=== PATIENT | female | born 1965 | race Hispanic/Latino ===

== ENCOUNTER 2017-05-03 10:22 | Inpatient (IN) | payer BC, SELFPAY ==
[2017-05-03] MEDS ORDERED: Nitroglycerin 0.4 MG TAB (25 Tab Bottle) ONE (10:54)
[2017-05-03 10:55] LABS: #Basophils 0.1 thou/uL (0.0-0.2); #Eosinphils 0.1 thou/uL (0.0-0.7); #Lymphocytes 1.9 thou/uL (1.20-3.40); #Monocytes 0.4 thou/uL (0.11-0.59); #Neutrophils 2.7 thou/uL (1.40-6.50); %Eosinophils 1.6 % (0.0-10.0); %Lymphocytes 36.3 % (21.0-51.0); %Monocytes 8.4 % (0.0-10.0); Hematocrit 45.5 % (36.0-47.0); Mean Platelet Volume 7.5 fL (7.4-10.4); Red Blood Cell (RBC) Count 4.88 mill/uL (4.20-5.40); White Blood Cell (WBC) Count 5.1 thou/uL (4.8-10.8)
[2017-05-03 11:17] LABS: ALT (SGPT) 18 U/L (8-55); AST (SGOT) 17 U/L (5-34); Alkaline Phosphatase 84 U/L (40-150); Anion Gap 11 mmol/L (10-20); BUN (Urea Nitrogen) 16 mg/dL (9.8-20.1); Bilirubin, Total 0.4 mg/dL (0.2-1.2); CK (CPK) 109 U/L (29-168); Calc. Creatinine Clearance 0 mL/min (70-130); Calcium 9.6 mg/dL (7.8-10.44); Carbon Dioxide 27 mmol/L (22-29); Chloride 106 mmol/L (98-107); Estimated GFR-MDRD 85; Globulin 3.5 g/dL (2.4-3.5); Lipase 14 U/L (8-78); Protein, Total 7.8 g/dL (6.0-8.3)
--- NOTE | 2017-05-03 12:12 | RAD ---
SINGLE VIEW OF CHEST: Date: 05/03/17 COMPARISON: None. HISTORY: Chest pain. FINDINGS: Single view of the chest shows a normal sized cardiomediastinal silhouette. There is no evidence of consolidation, mass, or pleural effusion. The bones are unremarkable. IMPRESSION: No evidence of acute cardiopulmonary disease. POS: [facility]
[2017-05-03] MEDS ORDERED: Enoxaparin Sodium 80 MG/0.8 ML SYRINGE ONE (12:28)
[2017-05-03] MEDS ORDERED: Enoxaparin Sodium 60 MG/0.6 ML SYRINGE ONE (12:29)
[2017-05-03] MEDS ORDERED: Nitroglycerin 2% Ointment 1 INCH/1 GM Packet TOP SCH (14:20)
[2017-05-03] MEDS ORDERED: Temazepam 15 MG CAP PO PRN (14:20)
[2017-05-03] MEDS ORDERED: Milk Of Magnesia 30 ML UDCUP PO PRN (14:20)
[2017-05-03] MEDS ORDERED: Mag-Al 1200 mg/1200 mg/30 ML UDCUP PO PRN (14:20)
[2017-05-03] MEDS ORDERED: Ondansetron HCl/PF 4 MG/2 ML Vial IVP PRN (14:24)
[2017-05-03] MEDS ORDERED: Ondansetron ODT 4 MG TAB PO PRN (14:24)
[2017-05-03 14:33] VITALS: BMI 27.1
[2017-05-03 15:08] LABS: Troponin I 2.828 ng/mL (< 0.028)
[2017-05-03] MEDS: Nitroglycerin 2% Ointment 1 INCH/1 GM Packet TOP SCH ×2 (16:18→19:46)
[2017-05-03] MEDS: Acetaminophen 325 MG TAB PO PRN ×2 (16:19→19:44)
--- NOTE | 2017-05-03 17:51 | HP ---
PRIMARY CARE PHYSICIAN: Paulie Moon M.D. at [facility]\ [place] CHIEF COMPLAINT: Chest pain. HISTORY OF PRESENT ILLNESS: Ms. Wyatt is a very pleasant 52-year-old female that has a history o f cholelithiasis. She says she was in her usual state of health until yesterday. She says that her dog was attacked and she took it to the animal hospital and they were unable to save her dog and he . She says she cried all night yesterday and then this morning, she woke up and was going to [employer] store with her to make a little cross for her dog when she started having pain in her jeff [address]. She says it felt like heartburn and it was not very severe. She rated it about 5/10, but then she noticed some tingling in her arm and her hands as well as having a mild headache as well as a ba ck ache. She mentioned that to her and he felt it was best that she come in to be evaluated . She denies having any shortness of breath. She had some mild nausea, but no diaphoresis. She sa ys the pain lasted about 2 hours and has since completely resolved. The patient says she has had ch est pains off and on, but it has been very rarely and usually when it happens it lasts about an hour or two and then go away. She denies any cough or congestion. She denies any heavy lifting. She o ccasionally has some heartburn-like symptoms which she usually attributes to the stones in her gallb ladder. She says when the gallbladder acts up, it can be very painful. REVIEW OF SYSTEMS: CONSTITUTIONAL: There has been no fevers, chills, no night sweats, no weight loss. HEENT: No headache, no dizziness, no visual changes, no sore throat, rhinorrhea, neck pain, no keith opathy. PULMONARY: No hemoptysis, no cough, no wheezing. CARDIOVASCULAR: As the history of present illness with the addition of no PND, no orthopnea, no pal pitations, and no lower extremity edema or leg pain. GASTROINTESTINAL: She has had some mild nausea, but no vomiting, no change in bowels. GENITOURINARY: No urinary frequency, hematuria, no hesitancy. NEUROLOGIC: No focal weakness, numbness, no seizures. PSYCHIATRIC: No symptoms of anxiety or depression. SKIN AND INTEGUMENT: No skin changes. No rash. PAST MEDICAL HISTORY: Significant for cholelithiasis. PAST SURGICAL HISTORY: She has had x2. ALLERGIES: No known drug allergies. SOCIAL HISTORY: She is and has 3 children. She denies any smoking or alcohol use. FAMILY HISTORY: Significant for diabetes mellitus in both her mother and her sister, obstructive sl eep apnea in her sister and her brother and hypertension in her sister. CURRENT MEDICATIONS: None. PHYSICAL EXAMINATION: GENERAL: She is alert and oriented. She appears to be in no acute distress. VITAL SIGNS: Her blood pressure was 139/80, heart rate 58, respiratory rate 17, temperature is 98.2 . HEENT: Pupils are equal, round, and reactive. Extraocular muscles are intact. Sclerae are anicter ic. Throat: There is no erythema, no exudates. NECK: No adenopathy, no bruits. LUNGS: Clear. There is no wheezing, no rales. CARDIOVASCULAR: She has a normal S1, S2. I do not appreciate an S3 or S4. No murmurs, clicks or r ubs. ABDOMEN: Obese but soft, nontender, nondistended. Positive for bowel sounds. No rebound, no guard ing. EXTREMITIES: There is no clubbing, cyanosis, no edema. NEUROLOGICALLY: The exam is grossly nonfocal. LABORATORY DATA: White blood cell count 5.1, hemoglobin 15.2, hematocrit is 45.5, platelet count is 198. Sodium 139, potassium 4.6, chloride is 106, CO2 is 27, BUN of 16, creatinine 0.72, glucose is 108. Urinalysis was negative. EKG was sinus rhythm, the rate is 55 and she had some possibly mild voltage criteria for LVH, but otherwise it is a normal EKG and she had a troponin of 0.0140. ASSESSMENT AND PLAN: This is a pleasant 52-year-old female that presents to the emergency room with complaints of chest pain, the description of which is more or less atypical. The patient does not have any significant risk factors for coronary artery disease and her overall risk is relatively low . However, with the elevated troponin, it is with none to compare, it seems reasonable to place her in observation. Continue to trend the troponins, get her lipid panel and a nuclear stress test in the a.m. for further risk stratification.
[2017-05-03] MEDS ORDERED: Sodium Chloride 0.9% 1,000 ML IV SCH (18:00)
[2017-05-03] MEDS ORDERED: Communication Order-Pharmacy FS SCH (18:00)
[2017-05-03 18:17] LABS: Troponin I 4.011 ng/mL (< 0.028)
[2017-05-03 18:51] LABS: Hematocrit 40.1 % (36.0-47.0)
--- NOTE | 2017-05-03 19:32 | CON ---
DATE OF CONSULTATION: 05/03/2017 REASON FOR CONSULTATION: Elevated troponin and chest pain. REFERRING PROVIDER: Dr. Hanna. HISTORY OF PRESENT ILLNESS: Ms. Wyatt is a very pleasant 52-year-old woman with no significant p ast medical history, who recently developed chest pain. This since occurred over the last several w eeks. It became more persistent this morning. She was walking with [employer] and was attacked by a nother dog. Unfortunately, her Chihuahua . This is a very stressful time and situation for the patient. Her symptoms continued and proceeded to the emergency room where she was found to have elevated troponin. PAST MEDICAL HISTORY: Cholelithiasis, x2. ALLERGIES: None. MEDICATIONS: None. FAMILY HISTORY: Negative for CAD. SOCIAL HISTORY: She is currently with 2 children. REVIEW OF SYSTEMS: Ten-point review of systems is reviewed and as above, otherwise negative. PHYSICAL EXAMINATION: VITAL SIGNS: Blood pressure 127/78, pulse 62, temperature 98. GENERAL: Patient is a pleasant female who is in no acute distress. The patient appears her stated age. NEUROLOGIC: The patient is alert and oriented times 3 with no focal neurologic deficits. HEENT: Sclerae without icterus. Mouth has moist mucous membranes with normal pallor. NECK: No JVD. Carotid upstroke brisk. No bruits bilaterally. LUNGS: Clear to auscultation with unlabored respirations. BACK: No scoliosis or kyphosis. CARDIAC: Regular rate and rhythm with normal S1 and S2. No S3 or S4 noted. No significant rubs, m urmurs, thrills, or gallops noted throughout the precordium. PMI is not displaced. There is no par asternal heave. ABDOMEN: Soft, nontender, nondistended. No peritoneal signs present. No hepatosplenomegaly. No a bnormal striae. EXTREMITIES: 2+ femoral and 2+ dorsalis pedis pulses. No cyanosis, clubbing, or edema. SKIN: No gross abnormalities. PERTINENT LABS: Hemoglobin 15.2. Peak troponin of 4.01 and creatinine 0.72. IMPRESSION: Unstable angina. RECOMMENDATIONS: Patient is currently pain free. At this point, we will continue Lovenox. I did d iscuss coronary angiography plus PCI. I discussed with Ms. Wyatt. The risks of the procedure in clude but are not limited to the following: , stroke, CT, need for emergency surgery, loss of l imb, bleeding, and infection, as well as a reaction to the dye causing kidney failure and needing lo ng-term dialysis. I also discussed the risks of PCI to include all of the above including coronary dissection and perforation in addition to acute stent thrombosis and restenosis. All questions abou t the procedure were answered. Given the above, the patient agreed to proceed with coronary angiogr aphy and possible PCI. All questions were answered. I also discussed drug-coated versus nondrug co ated stent placement. There are no contraindications to proceed if needed. Further recommendations pending the above.
[2017-05-03] MEDS: Docusate 100 MG CAP PO SCH (19:46)
[2017-05-03] MEDS: Enoxaparin Sodium 60 MG/0.6 ML SYRINGE SC SCH (19:47)
[2017-05-03] MEDS ORDERED: FLU VACC QS2017-18 36 mo. & older 0.5 ML SYRINGE IM ONE (21:00)
[2017-05-04] MEDS: Nitroglycerin 2% Ointment 1 INCH/1 GM Packet TOP SCH (02:29)
[2017-05-04] MEDS: Enoxaparin Sodium 60 MG/0.6 ML SYRINGE SC SCH (02:44)
[2017-05-04] MEDS: Docusate 100 MG CAP PO SCH ×2 (05:43→20:21)
[2017-05-04] MEDS: Sodium Chloride 0.9% 1,000 ML IV SCH ×2 (05:43→15:40)
[2017-05-04] MEDS: Acetaminophen 325 MG TAB PO PRN ×2 (05:45→10:57)
[2017-05-04] MEDS ORDERED: Ondansetron HCl/PF 4 MG/2 ML Vial IVP PRN (06:06)
[2017-05-04] MEDS ORDERED: Heparin 10,000 UNITS/1 ML VIAL ONE (08:39)
[2017-05-04] MEDS ORDERED: Nitroglycerin 100MG/250ML BOT 250 ML ONE (08:39)
[2017-05-04] MEDS ORDERED: Enoxaparin Sodium 40 MG/0.4 ML SYRINGE SC SCH (09:00)
[2017-05-04] MEDS ORDERED: Aspirin 325 MG TAB PO SCH (09:00)
[2017-05-04] MEDS ORDERED: Nitroglycerin 0.4 MG TAB (25 Tab Bottle) SL PRN (10:01)
[2017-05-04] MEDS ORDERED: Acetaminophen/Codeine 30-300mg Tablet PO PRN ×2 (10:01)
[2017-05-04] MEDS ORDERED: traMADol HCl 50 MG TAB PO PRN (10:01)
[2017-05-04] MEDS ORDERED: Sodium Chloride 0.9% 1,000 ML IV SCH (10:15)
[2017-05-04] MEDS ORDERED: Sodium Chloride 0.9% 200 ML IV SCH (10:15)
--- NOTE | 2017-05-04 11:28 | PDOC.PN ---
- Subjective Encounter Start Date: 05/04/17 Encounter Start Time: 11:25 Ms. Wyatt does not have any complaints. She denies chest pain or shortness of breath. - Objective Resuscitation Status: Resuscitation Status FULL:Full Resuscitation MAR Reviewed: Yes Vital Signs & Weight: Vital Signs (12 hours) Temp Pulse Resp BP Pulse Ox 05/04/17 10:02 61 16 113/73 100 05/04/17 09:58 97.9 F 61 16 05/04/17 04:00 98.7 F 66 20 105/64 99 Weight Weight 126 lb 9.6 oz I&O: 05/03/17 05/04/17 05/05/17 06:59 06:59 06:59 Intake Total 480 Output Total 700 Balance -220 Result Diagrams: 05/03/17 18:43 05/03/17 18:43 Phys Exam - Physical Examination HEENT: PERRLA Respiratory: no wheezing, no rales, no rhonchi, clear to auscultation bilateral Cardiovascular: RRR, no significant murmur Gastrointestinal: soft, non-tender, positive bowel sounds Musculoskeletal: no edema Dx/Plan (1) NSTEMI (non-ST elevated myocardial infarction) Code(s): I21.4 - NON-ST ELEVATION (NSTEMI) MYOCARDIAL INFARCTION Status: Acute (2) Dyslipidemia Code(s): E78.5 - HYPERLIPIDEMIA, UNSPECIFIED Status: Acute - Plan * NSTEMI- cath results noted * Patient with single vessel CAD, and recommended to treat medically * Will add Lipitor to get LDL to goal * Add Lisinopril for slightly low EF * Await further recommendations from Cardiology .
[2017-05-04] MEDS ORDERED: Iopamidol 370 76% 100 ML VIAL ONE (16:20)
[2017-05-04] MEDS ORDERED: Atorvastatin Calcium 40 MG TAB PO SCH (21:00)
[2017-05-05] MEDS: Sodium Chloride 0.9% 1,000 ML IV SCH (05:47)
[2017-05-05] MEDS ORDERED: Lisinopril 2.5 MG TAB PO SCH (09:00)
[2017-05-05] MEDS ORDERED: Aspirin 81 mg Enteric Coated Tablet PO SCH (09:00)
--- NOTE | 2017-05-05 09:14 | PDOC.PN ---
- Subjective Encounter Start Date: 05/05/17 Encounter Start Time: 09:12 Ms. Wyatt does not have any complaints. She denies chest pain or shortness of breath. - Objective Resuscitation Status: Resuscitation Status FULL:Full Resuscitation MAR Reviewed: Yes Vital Signs & Weight: Vital Signs (12 hours) Temp Pulse Resp BP BP Pulse Ox 05/05/17 07:35 98.1 F 63 18 98 05/05/17 07:25 98.1 F 63 18 117/78 98 05/05/17 05:17 97.8 F 63 16 104/69 95 05/05/17 02:47 98 Weight Weight 135 lb 11.2 oz I&O: 05/04/17 05/05/17 05/06/17 06:59 06:59 06:59 Intake Total 480 1890 Output Total 700 1980 Balance -220 -90 Result Diagrams: 05/03/17 18:43 05/03/17 18:43 Phys Exam - Physical Examination HEENT: PERRLA Respiratory: no wheezing, no rales, no rhonchi, clear to auscultation bilateral Cardiovascular: RRR, no significant murmur Gastrointestinal: soft, non-tender, positive bowel sounds Musculoskeletal: no edema Dx/Plan (1) NSTEMI (non-ST elevated myocardial infarction) Code(s): I21.4 - NON-ST ELEVATION (NSTEMI) MYOCARDIAL INFARCTION Status: Acute (2) Dyslipidemia Code(s): E78.5 - HYPERLIPIDEMIA, UNSPECIFIED Status: Acute - Plan * NSTEMI- patient is clinically stable * Discussed with Dr. Ford * Will discharge home.
--- NOTE | 2017-05-05 09:32 | DIS ---
PRIMARY CARE PHYSICIAN: Dr. Alfaro DISCHARGE DISPOSITION: Home. PRIMARY DISCHARGE DIAGNOSES: 1. Non-ST segment elevated myocardial infarction. 2. Dyslipidemia. DISCHARGE MEDICATIONS: Lisinopril 2.5 mg daily, Imdur 30 mg daily, Lipitor 40 mg at bedtime, aspiri n 81 mg daily. CODE STATUS: Full code. ALLERGIES: No known drug allergies. PROCEDURES DONE DURING ADMISSION: The patient had a cardiac catheterization which demonstrated sing le vessel coronary artery disease with 80% stenosis in the circumflex. The patient also had an ejec tion fraction of approximately 40-45%. ALLERGIES: No known drug allergies. HOSPITAL COURSE: Ms. Wyatt is a pleasant 52-year-old female who presented to the emergency room after she began experiencing chest pain. It started after she had a stressful event with her dog dy ing. She presented to the ER where her troponins were initially in the indeterminate range and then she ruled in. Cardiology was consulted. The patient underwent cardiac catheterization demonstrati ng single vessel coronary artery disease. It was felt that aggressive medical management would be h er best option. She was placed on aspirin, Lipitor as well as lisinopril for the low EF. Her heart rates ran in the 50s-60 range and therefore a beta-arslan was not added as it was noted that her h eart rate was adequately slow already. She will be given time off of work to recuperate. She is to follow up with Dr. Ford in approximately one week.
[2017-05-05] MEDS: Docusate 100 MG CAP PO SCH (09:55)
[2017-05-05 20:06] VITALS: BP 128/76; TEMP 98.4
--- NOTE | 2017-05-05 20:15 | PRG ---
DATE OF SERVICE: 05/05/2017 SUBJECTIVE: Ms. Wyatt is doing well, no recurrent episodes of chest pain or pressure noted. OBJECTIVE: VITAL SIGNS: Stable. LUNGS: Clear to auscultation. HEART: Regular rate and rhythm. ABDOMEN: Soft, nontender, nondistended. EXTREMITIES: No edema. IMPRESSION: Non-Q wave myocardial infarction. RECOMMENDATIONS: She did have severe disease present to a small OM branch. I would recommend ellyn nued medical therapy. We will hold beta arslan therapy due to bradycardia. Continue statin, Imdur , aspirin, and lisinopril. Follow up with Dr. Ford in 1-2 weeks.
== END 2017-05-05 12:42 | disposition home or self-care (01) | DRG 282 ==
LOC: ERS 10:22 → 2SW 14:18 → OBSVTOIN 14:18 → 2NO 16:34
PROVIDERS: ADMIT Internal Medicine; ATTEND Internal Medicine
PROC: 4A023N7 Measurement of Cardiac Sampling and Pressure, Left Heart, Percutaneous Approach (ICD-10-PCS; principal; 2017-05-04)
PROC: B2111ZZ Fluoroscopy of Multiple Coronary Arteries using Low Osmolar Contrast (ICD-10-PCS; 2017-05-04)
PROC: B2151ZZ Fluoroscopy of Left Heart using Low Osmolar Contrast (ICD-10-PCS; 2017-05-04)
DX: I21.4 Non-ST elevation (NSTEMI) myocardial infarction (principal); R00.1 Bradycardia, unspecified; E78.5 Hyperlipidemia, unspecified; I25.110 Atherosclerotic heart disease of native coronary artery with unstable angina pectoris; K80.20 Calculus of gallbladder without cholecystitis without obstruction
CPT/HCPCS: 36415; 71010; 80053; 80061; 82553; 83690; 84484; 85025; 93005; 93458; 93798; 94760; 96360; 96372; A4216; C1769; J1644; J1650; J2270; J2405